=== PATIENT | female | born 1985 | race Two or more races ===

== ENCOUNTER 2017-07-11 08:59 | Emergency (ER) | payer OTHER ==
[2017-07-11 09:10] VITALS: TEMP 96.8
--- NOTE | 2017-07-11 10:09 | EDPHY ---
H & P Time Seen by Provider: 07/11/17 09:35 HPI/ROS: CHIEF COMPLAINT: Abdominal pain HISTORY OF PRESENT ILLNESS: 31-year-old female presents to the emergency department with right lower quadrant abdominal pain. The pain began yesterday evening while she was doing laundry. She denies any known trauma or injury. She complains of isolated pain in the right lower quadrant. The pain woke up out of her sleep last night. It has been constant. She has never had this pain in the past. No vomiting or diarrhea. She had a normal bowel movement this morning. No chest pain or difficulty breathing. She has had a previous appendectomy. Last menstrual period is approximately 1 month ago and unsure if she is . She is not on any oral contraceptives or control. REVIEW OF SYSTEMS: Constitutional: No fever, no chills. Eyes: No double or blurry vision. ENT: No sore throat. Respiratory: No cough, no shortness of breath. Cardiac: No chest pain. Gastrointestinal: Abdominal pain as above. No vomiting or diarrhea Genitourinary: No dysuria. Musculoskeletal: No neck or back pain. Skin: No rashes. Neurological: No headache. Past Medical/Surgical History: Appendectomy 2011 Social History: and lives in [place] Smoking Status: Never smoked Physical Exam: General Appearance: Alert, no distress. Eyes: Pupils equal and round. Extraocular motions are all intact. ENT: Mouth: Mucous membranes moist. Respiratory: No wheezing, rhonchi, or rales, lungs are clear to auscultation. Cardiovascular: Regular rate and rhythm. Gastrointestinal: Abdomen is soft. She has tenderness with palpation in the right lower quadrant. There is no masses, rebound or guarding noted. No CVA tenderness bilaterally. Neurological: Alert and oriented x 3, cranial nerves II through XII grossly intact Skin: Warm and dry, no rashes. Musculoskeletal: Nontender to palpate along the cervical, thoracic or lumbar spine. Neck is supple. Extremities: Full range of motion and no peripheral edema. Psychiatric: Patient is oriented X 3, there is no agitation. Constitutional: Initial Vital Signs Temperature (C) 36.0 C 07/11/17 09:04 Heart Rate 75 07/11/17 09:04 Respiratory Rate 18 07/11/17 09:04 Blood Pressure 104/71 07/11/17 09:04 O2 Sat (%) 97 07/11/17 09:04 O2 Delivery Mode Room Air Allergies/Adverse Reactions: latex Allergy (Verified 12/03/13 16:06) swelling Home Medications: Medication Instructions Recorded NK [No Known Home Meds] 07/11/17 Medical Decision Making - Diagnostics Imaging Results: Imaging Impressions Pelvic/Renal Ultrasound 07/11/17 10:08 Impression: 1. Mildly thickened endometrial stripe measuring 17 mm with focal subcentimeter hypoechoic probable submucosal fibroid or polyp anteriorly. 2. Presumed involuted follicular cyst on the left. Findings discussed with Mary Grace Car M.D. at 11:57 hour, 07/11/2017. Abdomen CT 07/11/17 12:59 Impression: Trace free fluid in the pelvis, nonspecific. Otherwise, normal abdomen pelvis CT. Dr. Mcclellan discussed these findings by telephone with provider Mary Grace Car at 1343 hours on 07/11/2017. Imaging: Discussed imaging studies w/ will call clerk Radiologist ED Course/Re-evaluation: 31-year-old female presents to the emergency department with right-sided abdominal pain. Pain began last evening and she has been waves of worsening pain. She feels like her pain is getting worse. Pelvic ultrasound reveals small follicular cyst without evidence of obvious dominant cysts or ovarian torsion. Patient re-evaluated multiple times. The patient continues to have ongoing abdominal pain. She is tearful. I discussed the pros and cons of CT imaging of her abdomen pelvis including radiation exposure the patient agrees with CT scan. CT imaging reveals small free fluid. No evidence of colitis or obstruction. Otherwise unremarkable. Patient was given 30 mg of IV Toradol as well as IV normal saline. She was feeling much better. She is comfortable being discharged home. She was encouraged to follow up with her primary care provider. Differential Diagnosis: Including but not limited to urinary tract infection, pyelonephritis, kidney stone, ovarian cyst, ovarian torsion, acute appendicitis - Data Points Laboratory Results: Laboratory Results 07/11/17 10:30 07/11/17 10:30 07/11/17 07/11/17 07/11/17 10:30 10:30 10:30 WBC RBC Hgb Hct MCV MCH MCHC RDW Plt Count MPV Neut % (Auto) Lymph % (Auto) [place] % (Auto) Eos % (Auto) Baso % (Auto) Nucleat RBC Rel Count Absolute Neuts (auto) Absolute Lymphs (auto) Absolute Monos (auto) Absolute Eos (auto) Absolute Basos (auto) Absolute Nucleated RBC Immature Gran % Immature Gran # Sodium 143 mEq/L mEq/L (134-144) Potassium 4.1 mEq/L mEq/L (3.5-5.2) Chloride 102 mEq/L mEq/L (97-110) Carbon Dioxide 25 mEq/l mEq/l (22-31) Anion Gap 16 mEq/L mEq/L (8-16) BUN 9 mg/dL mg/dL (7-23) Creatinine 0.6 mg/dL mg/dL (0.6-1.0) Estimated GFR > 60 Glucose 86 mg/dL mg/dL (70-100) Calcium 9.6 mg/dL mg/dL (8.5-10.4) Beta HCG, Qual NEGATIVE Urine Color YELLOW Urine Appearance CLEAR Urine pH 6.0 (5.0-7.5) Ur Specific [place] 1.015 (1.002-1.030) Urine Protein NEGATIVE (NEGATIVE) Urine Ketones TRACE H (NEGATIVE) Urine Blood NEGATIVE (NEGATIVE) Urine Nitrate NEGATIVE (NEGATIVE) Urine Bilirubin NEGATIVE (NEGATIVE) Urine Urobilinogen NEGATIVE EU EU (0.2-1.0) Ur Leukocyte Esterase NEGATIVE (NEGATIVE) Urine RBC NONE SEEN /hpf /hpf (0-3) Urine WBC NONE SEEN /hpf /hpf (0-3) Ur Epithelial Cells TRACE /lpf /lpf (NONE-1+) Urine Mucus TRACE /lpf /lpf (NONE-1+) Urine Glucose NEGATIVE (NEGATIVE) 07/11/17 10:30 WBC 7.97 10^3/uL 10^3/uL (3.80-9.50) RBC 5.72 10^6/uL H 10^6/uL (4.18-5.33) Hgb 16.3 g/dL g/dL (12.6-16.3) Hct 47.9 % H % (38.0-47.0) MCV 83.7 fL fL (81.5-99.8) MCH 28.5 pg pg (27.9-34.1) MCHC 34.0 g/dL g/dL (32.4-36.7) RDW 12.7 % % (11.5-15.2) Plt Count 304 10^3/uL 10^3/uL (150-400) MPV 10.8 fL fL (8.7-11.7) Neut % (Auto) 61.7 % % (39.3-74.2) Lymph % (Auto) 27.1 % % (15.0-45.0) Glynn % (Auto) 6.6 % % (4.5-13.0) Eos % (Auto) 3.8 % % (0.6-7.6) Baso % (Auto) 0.5 % % (0.3-1.7) Nucleat RBC Rel Count 0.0 % % (0.0-0.2) Absolute Neuts (auto) 4.92 10^3/uL 10^3/uL (1.70-6.50) Absolute Lymphs (auto) 2.16 10^3/uL 10^3/uL (1.00-3.00) Absolute Monos (auto) 0.53 10^3/uL 10^3/uL (0.30-0.80) Absolute Eos (auto) 0.30 10^3/uL 10^3/uL (0.03-0.40) Absolute Basos (auto) 0.04 10^3/uL 10^3/uL (0.02-0.10) Absolute Nucleated RBC 0.00 10^3/uL 10^3/uL (0-0.01) Immature Gran % 0.3 % % (0.0-1.1) Immature Gran # 0.02 10^3/uL 10^3/uL (0.00-0.10) Sodium Potassium Chloride Carbon Dioxide Anion Gap BUN Creatinine Estimated GFR Glucose Calcium Beta HCG, Qual Urine Color Urine Appearance Urine pH Ur Specific [place] Urine Protein Urine Ketones Urine Blood Urine Nitrate Urine Bilirubin Urine Urobilinogen Ur Leukocyte Esterase Urine RBC Urine WBC Ur Epithelial Cells Urine Mucus Urine Glucose Medications Given: Discontinued Medications Sodium Chloride (Ns) 1,000 mls @ 0 mls/hr IV ONCE ONE; Wide Open PRN Reason: Protocol Stop: 07/11/17 14:02 Last Admin: 07/11/17 14:10 Dose: 1,000 mls Ketorolac Tromethamine (Toradol) 30 mg IVP EDNOW ONE Stop: 07/11/17 14:03 Last Admin: 07/11/17 14:11 Dose: 30 mg Departure - Departure Disposition: Home, Routine, Self-Care Clinical Impression: Abdominal pain Qualifiers: Abdominal location: right lower quadrant Qualified Code(s): R10.31 - Right lower quadrant pain Condition: Good Instructions: Acute Abdominal Pain (ED) Additional Instructions: Abdominal Pain: Return to the Emergency Department immediately for increasing pain, fever, vomiting, or if not completely better in 8-12 hours. Referrals: Jaleesa Daniel MD [Medical Doctor] - As per Instructions (Primary care provider call)
[2017-07-11 10:44] LABS: PLATELET COUNT 304 10^3/uL (150-400)
[2017-07-11] MEDS ORDERED: IOPAMIDOL (ISOVUE-300) 100 ML BTL ONE (13:07)
[2017-07-11] MEDS ORDERED: NS 1,000 ML IV ONE (14:01)
[2017-07-11] MEDS ORDERED: KETOROLAC 30 MG/1 ML SDV IVP ONE (14:02)
[2017-07-11 14:57] VITALS: BP 107/68; PULSE 76; RESP 16; O2SAT 97
== END 2017-07-11 14:56 | disposition home or self-care (01) ==
DX: R10.31 Right lower quadrant pain (principal); E86.9 Volume depletion, unspecified; Z90.49 Acquired absence of other specified parts of digestive tract; Z91.040 Latex allergy status
CPT/HCPCS: 96374; J1885; Q9967

== ENCOUNTER 2017-09-19 17:55 | Emergency (ER) | payer OTHER ==
[2017-09-19] MEDS ORDERED: NS 1,000 ML IV ONE (18:50)
[2017-09-19 19:23] LABS: PLATELET COUNT 283 10^3/uL (150-400)
--- NOTE | 2017-09-19 19:30 | EDPHY ---
HPI/HX/ROS/PE/MDM Narrative: CHIEF COMPLAINT: 1st trimester vaginal bleeding HPI: The patient is a 32 y/o female complaining of vaginal bleeding onset today around noon, about 7.5 hours ago. She thinks she is 5 weeks based on a positive home test 2 weeks ago. Her LMP was on August 13. Her spotting became heavier around 16:00 and she has passed a few clots. She has associated lower back pain bilaterally and occasional low pelvic pain that feels like menstrual cramping. During her prior she had light spotting in her first trimester; she describes her bleeding today as much heavier. She is normally healthy. REVIEW OF SYSTEMS: Aside from elements discussed in the HPI, a comprehensive 10-point review of systems was reviewed and is negative. PMH: Appendectomy 2011, blood type B+, SOCIAL HISTORY: and lives in [place]. Nonsmoker. Patient states her OB office is located "upstairs". PHYSICAL EXAM: General:Patient is alert, in no acute distress. ENT:Eyes are normal to inspection. ENT inspection normal. Neck: Normal inspection. Full range of motion. Respiratory:No respiratory distress. Breath sounds normal bilaterally. Cardiovascular: Regular rate and rhythm. Strong peripheral pulses. Normal cap refill. Abdomen:The abdomen is nontender to palpation. There are no peritoneal signs. Back: Normal to inspection. No tenderness to palpation. Skin: Normal color. No rash. Warm and dry. Extremities: Normal appearance. Full range of motion. Neuro: Oriented x3. Normal motor function. Normal sensory function. ED Course: This is a healthy 32 y/o female who thinks she is 5-weeks and presents with a 7.5-hour history of worsening vaginal bleeding and cramping. Presentation concerning for miscarriage. Plan for IV, labs, obstetrics US, 1L IV NS. BHCG is 15.19. Obstetrics US: no IUP Reassessed patient and discussed work up. Her abdomen remains benign and she has remained hemodynamically stable throughout her time here. She has no IUP on US and an extremely low BHCG. Unable to completely rule out ectopic at this time. Patient will require a BHCG recheck within 48-72 hours. I discussed this with the patient and she agrees with follow up plan. Strict return precautions given. 2049: Consulted with Dr. Jamroz, OBGYN. Her office will review lab work on Friday for patient. - Data Points Imaging Results: Imaging Impressions Obstetrics Ultrasound 09/19/17 19:17 Impression: 1. No IUP is identified. 2. Region of heterogeneous echogenicity in the left adnexa is of uncertain etiology, however, an ectopic cannot be excluded and continued clinical followup is indicated. Results called and discussed with Leobardo Burciaga MD on 09/19/2017 at 20:45. Imaging: Discussed imaging studies w/ crew caller Radiologist Laboratory Results: Laboratory Results 09/19/17 19:00 09/19/17 19:00 09/19/17 09/19/17 19:00 19:00 WBC 8.55 10^3/uL 10^3/uL (3.80-9.50) RBC 5.24 10^6/uL 10^6/uL (4.18-5.33) Hgb 14.9 g/dL g/dL (12.6-16.3) Hct 44.2 % % (38.0-47.0) MCV 84.4 fL fL (81.5-99.8) MCH 28.4 pg pg (27.9-34.1) MCHC 33.7 g/dL g/dL (32.4-36.7) RDW 13.1 % % (11.5-15.2) Plt Count 283 10^3/uL 10^3/uL (150-400) MPV 10.8 fL fL (8.7-11.7) Neut % (Auto) 64.2 % % (39.3-74.2) Lymph % (Auto) 25.6 % % (15.0-45.0) [place] % (Auto) 5.7 % % (4.5-13.0) Eos % (Auto) 3.7 % % (0.6-7.6) Baso % (Auto) 0.4 % % (0.3-1.7) Nucleat RBC Rel Count 0.0 % % (0.0-0.2) Absolute Neuts (auto) 5.49 10^3/uL 10^3/uL (1.70-6.50) Absolute Lymphs (auto) 2.19 10^3/uL 10^3/uL (1.00-3.00) Absolute Monos (auto) 0.49 10^3/uL 10^3/uL (0.30-0.80) Absolute Eos (auto) 0.32 10^3/uL 10^3/uL (0.03-0.40) Absolute Basos (auto) 0.03 10^3/uL 10^3/uL (0.02-0.10) Absolute Nucleated RBC 0.00 10^3/uL 10^3/uL (0-0.01) Immature Gran % 0.4 % % (0.0-1.1) Immature Gran # 0.03 10^3/uL 10^3/uL (0.00-0.10) Sodium 140 mEq/L mEq/L (135-145) Potassium 3.6 mEq/L mEq/L (3.5-5.2) Chloride 105 mEq/L mEq/L (97-110) Carbon Dioxide 25 mEq/l mEq/l (22-31) Anion Gap 10 mEq/L mEq/L (8-16) BUN 11 mg/dL mg/dL (7-23) Creatinine 0.6 mg/dL mg/dL (0.6-1.0) Estimated GFR > 60 Glucose 115 mg/dL H mg/dL (70-100) Calcium 9.4 mg/dL mg/dL (8.5-10.4) Beta HCG, Quant 15.19 mIU/mL H mIU/mL (0.00-4.83) Medications Given: Discontinued Medications Sodium Chloride (Ns) 1,000 mls @ 0 mls/hr IV ONCE ONE; Wide Open PRN Reason: Protocol Stop: 09/19/17 18:51 Last Admin: 09/19/17 19:03 Dose: 1,000 mls General Time Seen by Provider: 09/19/17 18:49 Initial Vital Signs: Initial Vital Signs Temperature (C) 36.4 C 09/19/17 17:59 Heart Rate 76 09/19/17 17:59 Respiratory Rate 17 09/19/17 17:59 Blood Pressure 103/75 09/19/17 17:59 O2 Sat (%) 98 09/19/17 17:59 O2 Delivery Mode Room Air Allergies/Adverse Reactions: latex Allergy (Verified 12/03/13 16:06) swelling Home Medications: Medication Instructions Recorded NK [No Known Home Meds] 07/11/17 Departure - Departure Disposition: Home, Routine, Self-Care Clinical Impression: Threatened miscarriage in early Condition: Good Instructions: Threatened Miscarriage (ED) Additional Instructions: Please excuse any work absences for Ms. Barajas' and her related to her medical condition. 1. Come to the [facility] lab on Friday, 09/22, without fail for recheck of your BHCG level. Bring the prescription with you. Results will be sent to Dr. Fishman's office, who is aware of you and will be watching for this lab. Call her office after the draw for results. 2. Alternatively, you can call your OBGYN on Friday and if they are not in the same practice as Dr. Fishman, explain that you require a follow up BHCG level to rule out ectopic . 3. Return to the ED for severe pain, severe bleeding (changing a pad every hour for 3 consecutive hours), fever, fainting, lightheadedness, or other worsening of condition. Referrals: Soumya Fishman MD [Medical Doctor] - As per Instructions Stand Alone Forms: Work Excuse Report Scribed for: Leobardo Burciaga Report Scribed by: Dai Polk Date of Report: 09/19/17 Time of Report: 19:11 Physician Review and Approval Statement: Portions of this note were transcribed by an ED scribe. I personally performed the history, physical exam, and medical decision making; and confirm the accuracy of the information in the transcribed note.
[2017-09-19 21:30] VITALS: BP 109/72; PULSE 72; RESP 16; TEMP 98.2; O2SAT 96
== END 2017-09-19 21:28 | disposition home or self-care (01) ==
DX: O20.0 Threatened abortion (principal); E86.9 Volume depletion, unspecified; Z91.040 Latex allergy status; Z3A.01 Less than 8 weeks gestation of pregnancy

== ENCOUNTER 2017-09-20 19:10 | Emergency (ER) | payer OTHER ==
[2017-09-20 19:19] VITALS: TEMP 98.2
[2017-09-20] MEDS ORDERED: NS 1,000 ML IV ONE ×2 (19:46→21:32)
[2017-09-20 19:57] LABS: PLATELET COUNT 277 10^3/uL (150-400)
[2017-09-20] MEDS ORDERED: HYDROmorphONE/DILAUDID 2 MG/ML INJ IVP ONE (20:04)
--- NOTE | 2017-09-20 20:15 | EDPHY ---
H & P Stated Complaint: vag bleeding seen yesterday for same Time Seen by Provider: 09/20/17 19:34 - Personal History LMP (Females 10-55): Current Tetanus Diphtheria and Acellular Pertussis (TDAP): Yes - Medical/Surgical History Hx Asthma: No Hx Chronic Respiratory Disease: No Hx Diabetes: No Hx Cardiac Disease: No Hx Renal Disease: No Hx Cirrhosis: No Hx Alcoholism: No Hx HIV/AIDS: No Hx Splenectomy or Spleen Trauma: No Other PMH: appy 2011 - Social History Smoking Status: Never smoked Constitutional: Initial Vital Signs Temperature (C) 36.8 C 09/20/17 19:15 Heart Rate 73 09/20/17 19:15 Respiratory Rate 14 09/20/17 19:15 Blood Pressure 93/74 L 09/20/17 19:15 O2 Sat (%) 92 09/20/17 19:15 O2 Delivery Mode Room Air Allergies/Adverse Reactions: latex Allergy (Verified 12/03/13 16:06) swelling Home Medications: Medication Instructions Recorded 09/20/17 Medical Decision Making - Diagnostics Imaging Results: Imaging Impressions Obstetrics Ultrasound 09/20/17 19:51 Impression: 1. Endometrial thickening measuring 12.1 mm with a rounded 2.9 mm hypoechoic structure in the endometrium. There is no embryonic pole or yolk sac, and at this point, differential considerations would include an early gestational sac, a blighted ovum, an endometrial cyst, or a pseudogestational sac. 2. Normal appearance of the ovaries with no adnexal mass observed, although there is limited evaluation of the adnexal regions. There is no ovarian torsion. Recommendation: Continued follow-up of quantitative beta hCG values and serial sonography, as clinically directed. Findings were discussed with Jean Apple MD at 21:12, on 09/20/2017. Imaging: Discussed imaging studies w/ house calls nurse practitioner Radiologist ED Course/Re-evaluation: CHIEF COMPLAINT: Vaginal bleeding HISTORY OF PRESENT ILLNESS: The patient is 32 y/o female who returns for the second time in 24 hours complaining of worsening vaginal bleeding and lower back pain. Her LMP was and she had a positive home test 2 weeks ago and until yesterday thought she was 5 weeks . She presented to the ED yesterday for progressive vaginal bleeding with associated back aching and had a BHCG of 15 and no IUP on US at that time. The radiologist did note that ectopic could not be ruled out. She was advised to have a follow up BHCG level drawn in 72 hours. Since then she's developed worsening bleeding and back pain. She is now bleeding through 1 pad every hour for the last 4 hours and is passing clots. Her back pain is much more severe than yesterday and diffuse across her lower back. She may have had associated chills today. She is still eating, drinking, and having normal bowel movements. REVIEW OF SYSTEMS: A 10 point review of systems was performed and is negative with the exception of the elements mentioned in the history of present illness. PHYSICAL EXAM: HR, BP, O2 Sat, RR. Temp noted General Appearance: Alert, well hydrated, appropriate, and non-toxic appearing. Head: Atraumatic without scalp tenderness or obvious injury Eyes: Pupils equal, round, reactive to light and accommodation, EOMI, no trauma , no injection. Nose: Atraumatic, no rhinorrhea, clear. Throat: There is no erythema or exudates, no lesions, normal tonsils, mucus membranes moist. Neck: Supple, non-tender, no lymphadenopathy. Respiratory: No retractions, no distress, no wheezes, and no accessory muscle use. Lungs are clear to auscultation bilaterally. Cardiovascular: Regular rate and rhythm, no murmurs, rubs, or gallops. Good capillary refill all extremities. Gastrointestinal: Abdomen is soft, suprapubic tenderness, non-distended, no masses, no rebound, no guarding, no peritoneal signs. Musculoskeletal: Normal active ROM of all extremities, atraumatic. Neurological: Alert, appropriate, and interactive. The patient has non-focal cranial nerves, motor, sensory, and cerebellar exam. Skin: No rashes, good turgor, no nodules on palpation. PAST MEDICAL HISTORY: , blood type B+ PAST SURGICAL HISTORY: Denies SOCIAL HISTORY: at bedside. Nonsmoker. DIAGNOSTICS/PROCEDURES/CRITICAL CARE TIME: Obstetrics US: Small intrauterine echogenic structure DIFFERENTIAL DIAGNOSIS: The differential diagnosis for the patient's vaginal bleeding included but was not limited to retained products of conception, ectopic , menses, miscarriage, and dysfunctional uterine bleeding. MEDICAL DECISION MAKING: This is a normally healthy 32 y/o female who presents with worsening vaginal bleeding and back pain over the last 24 hours. Despite positive home test 2 weeks ago, obstetrics US yesterday showed no IUP and BHCG was 15. Today she has moderate suprapubic tenderness on exam. Presentation could represent retained products of conception, ectopic , or other dysfunction uterine bleeding. Plan for IV, labs, and repeat obstetrics US. Symptom management with 1L IV NS and 0.5mg IV Dilaudid. Small intrauterine echogenic structure on US, no evidence of ectopic. BHCG has dropped from 15 to 3 in the last 24 hours. Reassessed patient and discussed work up and treatment options. Work up consistent with miscarriage, H&H is normal, remains non-toxic on exam. She is feeling much better after fluids and Dilaudid. Plan to follow up with her OBGYN on Friday. She will be discharged with a prepack for Garwin for pain. Return precautions discussed. - Data Points Laboratory Results: Laboratory Results 09/20/17 19:45 09/20/17 19:45 09/20/17 09/20/17 19:45 19:45 WBC 9.11 10^3/uL 10^3/uL (3.80-9.50) RBC 5.07 10^6/uL 10^6/uL (4.18-5.33) Hgb 14.5 g/dL g/dL (12.6-16.3) Hct 42.9 % % (38.0-47.0) MCV 84.6 fL fL (81.5-99.8) MCH 28.6 pg pg (27.9-34.1) MCHC 33.8 g/dL g/dL (32.4-36.7) RDW 12.9 % % (11.5-15.2) Plt Count 277 10^3/uL 10^3/uL (150-400) MPV 10.8 fL fL (8.7-11.7) Neut % (Auto) 66.9 % % (39.3-74.2) Lymph % (Auto) 22.5 % % (15.0-45.0) [place] % (Auto) 7.0 % % (4.5-13.0) Eos % (Auto) 3.1 % % (0.6-7.6) Baso % (Auto) 0.3 % % (0.3-1.7) Nucleat RBC Rel Count 0.0 % % (0.0-0.2) Absolute Neuts (auto) 6.09 10^3/uL 10^3/uL (1.70-6.50) Absolute Lymphs (auto) 2.05 10^3/uL 10^3/uL (1.00-3.00) Absolute Monos (auto) 0.64 10^3/uL 10^3/uL (0.30-0.80) Absolute Eos (auto) 0.28 10^3/uL 10^3/uL (0.03-0.40) Absolute Basos (auto) 0.03 10^3/uL 10^3/uL (0.02-0.10) Absolute Nucleated RBC 0.00 10^3/uL 10^3/uL (0-0.01) Immature Gran % 0.2 % % (0.0-1.1) Immature Gran # 0.02 10^3/uL 10^3/uL (0.00-0.10) Sodium 141 mEq/L mEq/L (135-145) Potassium 4.0 mEq/L mEq/L (3.5-5.2) Chloride 109 mEq/L mEq/L (97-110) Carbon Dioxide 24 mEq/l mEq/l (22-31) Anion Gap 8 mEq/L mEq/L (8-16) BUN 8 mg/dL mg/dL (7-23) Creatinine 0.7 mg/dL mg/dL (0.6-1.0) Estimated GFR > 60 Glucose 93 mg/dL mg/dL (70-100) Calcium 9.3 mg/dL mg/dL (8.5-10.4) Beta HCG, Quant 3.83 mIU/mL mIU/mL (0.00-4.83) Medications Given: Discontinued Medications Hydromorphone HCl (Dilaudid) 0.5 mg IVP EDNOW ONE Stop: 09/20/17 20:05 Last Admin: 09/20/17 20:12 Dose: Not Given Sodium Chloride (Ns) 1,000 mls @ 0 mls/hr IV ONCE ONE; Wide Open PRN Reason: Protocol Stop: 09/20/17 19:47 Last Admin: 09/20/17 19:54 Dose: 1,000 mls Departure - Departure Disposition: Home, Routine, Self-Care Clinical Impression: Miscarriage Condition: Good Instructions: Miscarriage (ED), Hydrocodone/Acetaminophen (By mouth) Additional Instructions: 1. Increase fluid intake. 2. Take 600mg ibuprofen every 6-8 hours for pain for the next few days. 3. Use Garwin as prescribed when needed for severe pain. 4. Follow up with your OBGYN as planned on Friday. 5. Return to the ED for worsening of condition. Your BHCG level today was 3. It was 15 yesterday (09/19/17). Referrals: Soumya Fishman MD [Medical Doctor] - As per Instructions Report Scribed for: Jean Apple Report Scribed by: Dai Polk Date of Report: 09/20/17 Time of Report: 20:26
[2017-09-20] MEDS ORDERED: HYDROCOD/APAP 5/325 PREPACK#6 BTL TAKEHOME ONE (21:45)
[2017-09-20 22:18] VITALS: RESP 16
[2017-09-20 22:20] VITALS: BP 111/80; PULSE 77; O2SAT 95
== END 2017-09-20 22:17 | disposition home or self-care (01) ==
DX: O03.9 Complete or unspecified spontaneous abortion without complication (principal); E86.9 Volume depletion, unspecified; Z3A.01 Less than 8 weeks gestation of pregnancy
CPT/HCPCS: J1170